=== PATIENT | male | born 1985 | race Caucasian/White ===

== ENCOUNTER 2019-12-04 22:50 | Observation (INO) ==
[2019-12-04] MEDS ORDERED: ONDANSETRON 4 MG/2 ML VIAL IV ONE (23:13)
[2019-12-05 00:28] LABS: ABG Base Excess 3.1 MMOL/L (-2.5-2.5); ABG HCO3 27.8 MMOL/L (20-26); ABG Oxygen Saturation 97.9 % (95-100); ABG PCO2 42.5 MM HG (35-48); ABG PH 7.433 (7.35-7.45); ABG PO2 106.3 MM HG (80-95); ABG TCO2 29.1 MMOL/L (23-27)
[2019-12-05] MEDS ORDERED: KETOROLAC 30 MG/1 ML VIAL IV STA (01:41)
[2019-12-05] MEDS ORDERED: SODIUM CHLORIDE 0.9% 1,000 ML IV STA (01:59)
[2019-12-05 02:16] LABS: Basophils # 0.1 10*3/uL (0.0-0.2); Basophils % 0.7 % (0.0-0.8); Eosinophils # 0.2 10*3/uL (0.0-0.87); Eosinophils % 2.4 % (0.00-10.9); Hematocrit 43.5 VOL% (42.0-52.0); Hemoglobin 14.8 GM/DL (14.0-18.0); Immature Granulocytes % 0.2 %; Immature Granulocytes Absolute 0.02 #; Lymphocytes # 3.2 10*3/uL (1.4-4.0); Lymphocytes % 34.2 % (21.2-54.2); Mean Corpuscular Volume 91.8 FL (87-102); Monocytes % 4.6 % (1.7-12.7); NRBC # 0.02 10*3/uL; Neutrophils % 57.9 % (38.7-73.9); Platelet Count 137 T/CUMM (130-400); Red Blood Count 4.74 MC/CUMM (3.8-5.5); Red Cell Distribution Width 13.2 % (9.3-17.3); White Blood Count 9.2 T/CUMM (4-12)
[2019-12-05 02:19] LABS: Alanine Aminotransferase 21 U/L (16-61); Albumin 3.9 G/DL (3.4-5.0); Alkaline Phosphatase 78 U/L (45-117); Aspartate Amino Transferase 78 U/L (0-37); Bilirubin,Total < 0.39 MG/DL (0.2-1.0); Blood Urea Nitrogen 10 MG/DL (7-18); Calcium 8.8 MG/DL (8.5-10.1); Estimated Glom Filtration Rate 117 ML/MIN; Glucose 146 MG/DL (74-106); Osmolality,Calculated 280.4 MOS/KG (273-304); Total Protein 7.6 G/DL (6.4-8.3)
[2019-12-05] MEDS ORDERED: DEXTROSE 50% 25 GM/50 ML VIAL IV PRN (02:34)
[2019-12-05] MEDS ORDERED: GLUCAGON 1 MG VIAL IM PRN (02:34)
[2019-12-05] MEDS ORDERED: hydrALAZINE 20 MG/1 ML VIAL IV PRN (02:34)
[2019-12-05] MEDS ORDERED: diphenhydrAMINE CAP 25 MG CAPSULE PO PRN (02:34)
[2019-12-05] MEDS ORDERED: ONDANSETRON 4 MG/2 ML VIAL IV PRN (02:34)
[2019-12-05] MEDS ORDERED: guaiFENesin/DM ER 600-30 MG TABLET PO PRN (02:34)
[2019-12-05] MEDS ORDERED: NICOTINE 21 MG/24 HR PATCH TRANSDERM PRN (02:34)
[2019-12-05] MEDS: ACETAMINOPHEN 325 MG TABLET PO PRN ×2 (05:05→16:11)
[2019-12-05] MEDS ORDERED: INFLUENZA VIRUS VACCINE 0.5 ML SYRINGE IM ONE (05:39)
[2019-12-05 06:01] LABS: Alanine Aminotransferase 19 U/L (16-61); Albumin 3.7 G/DL (3.4-5.0); Alkaline Phosphatase 76 U/L (45-117); Aspartate Amino Transferase 53 U/L (0-37); Bilirubin,Direct < 0.100 MG/DL (0.0-0.20); Bilirubin,Indirect 0.3 MG/DL (0.0-1.0); Bilirubin,Total < 0.39 MG/DL (0.2-1.0); Glucose,Fasting 92 MG/DL (74-106); Total Protein 7.1 G/DL (6.4-8.3)
[2019-12-05] MEDS: ALBUTEROL/IPRATROPIUM 3 ML NEB RESP TX SCH ×3 (06:51→19:43)
[2019-12-05 06:54] LABS: Hepatitis B Core IgM Quant 0.13 Index; Hepatitis B Surface Ag Quant < 0.10 Index; Hepatitis B Surface Ag Result Negative (Negative); Hepatitis C Virus Ab Quant 0.03 Index; Hepatitis C Virus Ab Result Negative (Negative)
[2019-12-06] MEDS: ALBUTEROL/IPRATROPIUM 3 ML NEB RESP TX SCH ×3 (00:03→14:07)
[2019-12-06] MEDS: ACETAMINOPHEN 325 MG TABLET PO PRN ×2 (02:53→08:27)
[2019-12-06 12:16] VITALS: BP 123/72
== END 2019-12-06 15:45 | disposition home or self-care (01) ==
LOC: EDBD → EDUNIT# → N.EDINP 22:50 → N.ED 22:50 → N.EDINP 12-05 04:30 → N.3W 12-05 04:52
PROVIDERS: ADMIT Emergency Medicine; ATTEND Emergency Medicine